=== PATIENT | female | born 1950 | race Caucasian/White ===

== ENCOUNTER 2016-10-12 09:32 | Day surgery (SDC) | payer OTHER ==
[~2016-10-12] VITALS: Ht 160 cm; Wt 63.9 kg
[~2016-10-12 09:32] MED LIST: HYDR-762 PO; IBUP-1542 PO; TAMS-14 PO
[2016-10-12 10:48] VITALS: Ht 160 cm; Wt 63.9 kg
[2016-10-12] MEDS ORDERED: VITAMINS DAILY (10:57)
[2016-10-12] MEDS ORDERED: LORATADINE (10:57)
[2016-10-12 11:09] VITALS: BP 120/75; PULSE 69; RESP 16
[2016-10-12] MEDS ORDERED: MIDAZOLAM 1 MG/ML 2 ML INJ ONE ×2 (12:10)
[2016-10-12] MEDS ORDERED: FENTAnyl 50 MCG/ML VIAL ONE (12:10)
[2016-10-12 12:35] VITALS: BP 126/81; PULSE 72; RESP 14
--- NOTE | 2016-10-12 12:45 | GILP ---
DATE OF PROCEDURE: 10/12/2016 NAME OF PROCEDURE: Colonoscopy. SURGEON: Wallace Mejía MD PREOPERATIVE DIAGNOSIS: Screening colonoscopy. POSTOPERATIVE DIAGNOSES: 1. Colonoscopy all the way to the cecum. 2. Internal hemorrhoids. 3. No colon neoplasm was identified. INDICATION FOR THE PROCEDURE: Ms. Marlin Horton is a 65-year-old female patient who was scheduled for screening colonoscopy. The procedure and possible complications are well explained to the patient, she understood and conse nted to the procedure. DESCRIPTION OF PROCEDURE: Under the influence of fentanyl and Versed, the colonoscope was carefully introduced in the rectum and under direct vision, it was advanced all the way to the cecum. FINDINGS: The patient had internal hemorrhoids. No colon neoplasm was identified. She tolerated the procedure very well and there was no complication from the procedure. At the end of the procedures, she was awake with stable vital signs and she was discharged home to the care of her family. IMPRESSION: 1. Colonoscopy all the way to the cecum. 2. Internal hemorrhoids. 3. No colon neoplasm was identified. PLAN: Next screening colonoscopy in 10 years. Dictated By: WALLACE YODER/PAGE Conf#: [id number] DID#: [id number] CC: WALLACE MEJÍA MD;*EndCC*
== END 2016-10-12 16:29 | disposition home or self-care (01) ==
LOC: GIL 09:32
PROVIDERS: ATTEND Internal Medicine Gastroenterology
DX: Z12.11 Encounter for screening for malignant neoplasm of colon (principal); K64.8 Other hemorrhoids
CPT/HCPCS: 45378; J2250; J3010